=== PATIENT | female | born 2005 | race Two or more races ===

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

== ENCOUNTER 2023-10-26 11:38 | Emergency (ER) | payer OTHER ==
[~2023-10-26] VITALS: Ht 160 cm; Wt 55.3 kg
[~2023-10-26 11:38] MED LIST: PRENATAL TABLE1 EAC3 PO
[2023-10-26 13:13] LABS: HEMATOCRIT 38.2 % (36.0-45.00); HEMOGLOBIN 13.3 g/dL (12.0-15.00); MEAN CELL VOLUME 87.8 fL (80.00-100.00); MEAN CORPUSCULAR HEMOGLOBIN 30.6 pg (27.00-32.0); MEAN CORPUSCULAR HGB CONC 34.8 g/dl (32.0-36.0); PLATELET COUNT 318 K/uL (150-450); RED BLOOD COUNT 4.35 M/uL (4.00-6.00); RED CELL DISTRIBUTION WIDTH 12.8 % (11.5-14.5)
[2023-10-26 14:06] LABS: CREATININE SERUM 0.4 mg/dL (0.55-1.02); GFR 203.49; POTASSIUM 3.16 mEq/L (3.5-5.1)
== END 2023-10-26 16:04 | disposition home or self-care (01) ==
LOC: ER 11:39
PROVIDERS: General Practice
DX: O20.8 Other hemorrhage in early pregnancy (principal); Z91.013 Allergy to seafood; Z88.8 Allergy status to other drugs, medicaments and biological substances; Z3A.01 Less than 8 weeks gestation of pregnancy

== ENCOUNTER 2023-11-28 10:01 | Outpatient (CLI) | payer OTHER | END 2023-11-28 10:02 | disposition home or self-care (01) | LOC: PRENATAL 10:01 | PROVIDERS: ATTEND Obstetrics & Gynecology Maternal & Fetal Medicine | DX: O36.80X0 Pregnancy with inconclusive fetal viability, not applicable or unspecified (principal); Z36.82 Encounter for antenatal screening for nuchal translucency; Z3A.11 11 weeks gestation of pregnancy ==

== ENCOUNTER 2024-05-06 02:16 | Outpatient (CLI) | payer OTHER ==
[~2024-05-06] VITALS: Ht 160 cm; Wt 67.1 kg
[2024-05-06 00:30] VITALS: BP 113/75; O2SAT 100
[2024-05-06] MEDS ORDERED: PROMETHAZINE HCL 25 MG/ML AMPUL ONE (02:36)
[2024-05-06] MEDS ORDERED: FAMOTIDINE/PF 20 MG/2 ML VIAL ONE (02:37)
[2024-05-06] MEDS ORDERED: PROMETHAZINE HCL 25 MG/ML AMPUL IV STA (02:56)
[2024-05-06] MEDS ORDERED: FAMOTIDINE/PF 20 MG/2 ML VIAL IV PUSH ONE (03:00)
[2024-05-06] MEDS ORDERED: RINGERS SOLUTION,LACTATED 1,000 ML IV SCH (03:00)
[2024-05-06 03:25] LABS: PH,URINE 6.5 (5.0-8.0); URINE APPEARANCE Clear; URINE BILIRRUBIN Negative (NEGATIVE); URINE BLOOD Negative; URINE COLOR Dark Yellow; URINE GLUCOSE Negative (NEGATIVE); URINE KETONE 15 (NEGATIVE); URINE LEUKOCYTE Moderate; URINE NITRATE Negative; URINE PROTEIN Trace (NEGATIVE)
[2024-05-06 03:58] LABS: URINE BACTERIA 3390.4 uL (0.0-1933); URINE EPITHELIAL CELLS 73.4 uL (0.0-38.8); URINE WBC 240.6 uL (0.0-23.2)
[2024-05-06 04:16] LABS: INR 0.97; PROTHROMBIN TIME 10.6 SECONDS (9.0-11.5)
[2024-05-06 04:19] LABS: ALBUMIN 2.9 gm/dL (3.4-5.0); BILIRUBIN TOTAL 0.46 mg/dL (0.3-1.2); CALCIUM 8.7 mg/dL (8.5-10.1); CREATININE SERUM 0.34 mg/dL (0.55-1.02); GFR 245.47; GLOBULINA 4.7 G/DL (2.4-3.5); POTASSIUM 4.13 mEq/L (3.5-5.1); TOTAL PROTEIN 7.6 gm/dL (6.4-8.2)
[2024-05-06 04:20] VITALS: BP 110/68
[2024-05-06 04:24] LABS: URINE CAST 0.45 uL (0.0-1.40)
[2024-05-06 05:01] LABS: HEMOGLOBIN 12.6 g/dL (12.0-15.00); MEAN CELL VOLUME 86.3 fL (80.00-100.00); MEAN CORPUSCULAR HEMOGLOBIN 28.6 pg (27.00-32.0); MEAN CORPUSCULAR HGB CONC 33.1 g/dl (32.0-36.0); PLATELET COUNT 251 K/uL (150-450); RED CELL DISTRIBUTION WIDTH 14.4 % (11.5-14.5)
[2024-05-06] MEDS ORDERED: LOPERAMIDE HCL 2 MG CAPSULE PO ONE (06:45)
[2024-05-06 07:54] VITALS: BP 103/63
[2024-05-06 09:25] VITALS: BP 103/63
== END 2024-05-06 10:17 | disposition home or self-care (01) ==
LOC: OBS/DEL 02:16
PROVIDERS: ATTEND Specialist
DX: O26.893 Other specified pregnancy related conditions, third trimester (principal); Z3A.34 34 weeks gestation of pregnancy; K52.89 Other specified noninfective gastroenteritis and colitis

== ENCOUNTER 2024-05-26 10:36 | Inpatient (IN) | payer OTHER ==
[~2024-05-26] VITALS: Ht 160 cm; Wt 71.2 kg
[2024-06-12 10:09] VITALS: BP 117/69
[2024-06-12] MEDS ORDERED: AMPICILLIN SODIUM 2,000 MG VIAL IV STA (10:39)
[2024-06-12] MEDS ORDERED: OXYTOCIN 500 ML IV SCH (10:45)
[2024-06-12] MEDS ORDERED: RINGERS SOLUTION,LACTATED 1,000 ML IV SCH (10:45)
[2024-06-12 12:37] LABS: PH,URINE 7.5 (5.0-8.0); URINE APPEARANCE Cloudy; URINE BILIRRUBIN Negative (NEGATIVE); URINE BLOOD Negative; URINE COLOR Yellow; URINE GLUCOSE Negative (NEGATIVE); URINE KETONE Negative (NEGATIVE); URINE LEUKOCYTE Trace; URINE NITRATE Negative; URINE PROTEIN Negative (NEGATIVE)
[2024-06-12 12:42] LABS: URINE BACTERIA 827.6 uL (0.0-1933); URINE EPITHELIAL CELLS 11.4 uL (0.0-38.8); URINE RBC 2.1 uL (0.0-20.8); URINE WBC 6.1 uL (0.0-23.2)
[2024-06-12 12:53] LABS: INR 0.94; PARTIAL THROMBOPLASTIN TIME 25.2 SECONDS (22.0-34.0); PROTHROMBIN TIME 10.3 SECONDS (9.0-11.5)
[2024-06-12 13:00] LABS: ALBUMIN 2.7 gm/dL (3.4-5.0); BILIRUBIN TOTAL 0.42 mg/dL (0.3-1.2); CALCIUM 8.8 mg/dL (8.5-10.1); GFR 292.02; GLOBULINA 4.1 G/DL (2.4-3.5); HEMATOCRIT 35.6 % (36.0-45.00); HEMOGLOBIN 11.8 g/dL (12.0-15.00); MEAN CELL VOLUME 84.4 fL (80.00-100.00); MEAN CORPUSCULAR HGB CONC 33.2 g/dl (32.0-36.0); PLATELET COUNT 241 K/uL (150-450); POTASSIUM 4.31 mEq/L (3.5-5.1); RED BLOOD COUNT 4.22 M/uL (4.00-6.00); RED CELL DISTRIBUTION WIDTH 15.9 % (11.5-14.5); TOTAL PROTEIN 6.8 gm/dL (6.4-8.2)
[2024-06-12 13:05] LABS: CREATININE SERUM 0.29 mg/dL (0.55-1.02)
[2024-06-12 13:07] LABS: URINE CAST 0.15 uL (0.0-1.40)
[2024-06-12 15:40] VITALS: BP 127/81
[2024-06-12] MEDS ORDERED: AMPICILLIN SODIUM 1,000 MG VIAL IV SCH (16:00)
[2024-06-12] MEDS ORDERED: ACETAMINOPHEN 325 MG TABLET PO PRN (16:15)
[2024-06-12] MEDS ORDERED: CHLORHEXIDINE GLUCONATE 120 ML BOTTLE TOP ONE (16:15)
[2024-06-12] MEDS ORDERED: ERYTHROMYCIN BASE OPHT 1GM EACH TUBE OP ONE (16:15)
[2024-06-12] MEDS ORDERED: LIDOCAINE HCL 1% 10ML VIAL IJ ONE (16:15)
[2024-06-12] MEDS ORDERED: OxyCODONE HCL/APAP UD (PERCOCET) PO PRN (16:15)
[2024-06-12] MEDS ORDERED: OXYTOCIN 20 UNITS/1000ML RL PIGGYBAG IV ONE (16:15)
[2024-06-12] MEDS ORDERED: BENZOCAINE/MENTHOL 90 ML BOTTLE TOP SCH (17:00)
[2024-06-12] MEDS ORDERED: HYDROCORTISONE 2.5% 30 GM TUBE RECTAL SCH (17:00)
[2024-06-12 20:00] VITALS: BP 128/65
[2024-06-12 23:45] VITALS: BP 123/61
[2024-06-13 01:52] LABS: HEMATOCRIT 37.1 % (36.0-45.00); HEMOGLOBIN 12.3 g/dL (12.0-15.00); MEAN CELL VOLUME 85.4 fL (80.00-100.00); MEAN CORPUSCULAR HEMOGLOBIN 28.3 pg (27.00-32.0); MEAN CORPUSCULAR HGB CONC 33.1 g/dl (32.0-36.0); PLATELET COUNT 276 K/uL (150-450); RED BLOOD COUNT 4.34 M/uL (4.00-6.00); RED CELL DISTRIBUTION WIDTH 15.7 % (11.5-14.5)
[2024-06-13 02:24] VITALS: BP 123/80
[2024-06-13 08:00] VITALS: BP 119/75
[2024-06-13 16:00] VITALS: BP 117/74
[2024-06-14 01:53] VITALS: BP 119/83
[2024-06-14 08:00] VITALS: BP 120/75
== END 2024-06-14 15:46 | DRG 807 ==
LOC: OB/GYN 06-12 10:38 → LDR 06-12 10:38 → OB/GYN 06-12 23:19
PROVIDERS: ADMIT Specialist; ATTEND Specialist
PROC: 10E0XZZ Delivery of Products of Conception, External Approach (ICD-10-PCS; principal; 2024-06-12)
PROC: 0W8NXZZ Division of Female Perineum, External Approach (ICD-10-PCS; 2024-06-12)
PROC: 4A1HXCZ Monitoring of Products of Conception, Cardiac Rate, External Approach (ICD-10-PCS; 2024-06-12)
DX: O99.824 Streptococcus B carrier state complicating childbirth (principal); Z37.0 Single live birth; Z3A.39 39 weeks gestation of pregnancy; Z20.822 Contact with and (suspected) exposure to COVID-19